=== PATIENT | male | born 1970 | race Caucasian/White ===

== ENCOUNTER 2018-06-23 12:50 | Emergency (ER) | payer SELFPAY ==
--- NOTE | 2018-06-23 13:20 | Emergency Department Record ---
History of Present Illness - General Chief Complaint: Chest Pain Stated Complaint: CHEST PRESSURE,BLURRY VISION Time Seen by Provider: 06/23/18 13:11 Source: Patient Mode of Arrival: Ambulatory Limitations: No limitations - History of Present Illness Initial Comments: 47 yo male presents with intermittent flushing, lightheadedness, chest tightness that started last evening. No shortness of breath or leg swelling. No cough or fever. He feels "foggy". He denies any recent similar symptoms prior to last night. He is not a smoker. No medications or chronic medical problems. He denies any family history of CAD. Three weeks ago he had a mild cough that resolved. No recent illness, immobilization. He felt cold last night as well. MD Complaint: Chest pain Onset/Timin -: Hour(s) Onset: During rest Pain Location: Left chest Pain Radiation: None Quality: Heaviness Consistency: Constant, Now resolved Improves With: Nothing Worsens With: Nothing Anginal Symptoms: Other Treatments Prior to Arrival: None - Related Data Allergies Allergy/AdvReac Type Severity Reaction Status Date / Time No Known Drug Allergies Allergy Verified 06/23/18 12:56 Travel Screening - Travel/Exposure Within Last 30 Days Have you traveled within the last 30 days?: No - Travel/Exposure Within Last Year Have you traveled outside the [place] in the last year?: No - Additonal Travel Details Have you been exposed to anyone with a communicable illness?: No - Travel Symptoms Symptom Screening: None Review of Systems Constitutional: Reports: Malaise. Denies: Chills, Fever Eyes: Reports: Vision change (peripheral "feels foggy"). Denies: Eye discharge ENT: Denies: Congestion, Throat pain Respiratory: Denies: Cough, Dyspnea, Hemoptysis, Stridor, Wheezes Cardiovascular: Reports: Chest pain. Denies: Edema, Palpitations, Syncope Endocrine: Reports: Fatigue Gastrointestinal: Denies: Abdominal pain, Diarrhea, Nausea, Vomiting Genitourinary: Denies: Dysuria, Frequency, Hematuria Musculoskeletal: Denies: Arthralgia, Back pain, Myalgia Skin: Denies: Bruising, Change in color, Rash Neurological: Reports: Other (feels foggy). Denies: Headache, Numbness, Vertigo , Weakness Psychiatric: Denies: Anxiety Hematological/Lymphatic: Denies: Blood Clots, Easy bleeding, Easy bruising, Swollen glands Past Medical History - SOCIAL HISTORY Smoking Status: Never smoker Alcohol Use: Occasional Drug Use: None - RESPIRATORY Hx Respiratory Disorders: No - CARDIOVASCULAR Hx Cardio Disorders: No - NEURO Hx Neuro Disorders: No - GI Hx GI Disorders: No - Hx Genitourinary Disorders: No - ENDOCRINE Hx Endocrine Disorders: No - MUSCULOSKELETAL Hx Musculoskeletal Disorders: No - PSYCH Hx Psych Problems: No - HEMATOLOGY/ONCOLOGY Hx Hematology/Oncology Disorders: No Family Medical History Any Significant Family History?: No Physical Exam - General General Appearance: Alert, Oriented x3, Cooperative, No acute distress Limitations: No limitations - Head Head exam: Atraumatic, Normal inspection - Eye Eye exam: Normal appearance, EOMI, Other (No double vision on examination, all quadrants intact with peripheral confrontation testing, no loss of range of motion of EOM). negative: PERRL, Conjunctival injection, Nystagmus, Scleral icterus Pupils: Normal accommodation. negative: Irregular, Unequal - ENT ENT exam: Normal exam, Mucous membranes moist Ear exam: Normal external inspection Nasal Exam: Normal inspection Mouth exam: Normal external inspection Teeth exam: Normal inspection Throat exam: Normal inspection - Neck Neck exam: Normal inspection, Full ROM. negative: Lymphadenopathy, Tenderness - Respiratory Respiratory exam: Normal lung sounds bilaterally. negative: Respiratory distress, Rhonchi, Stridor, Wheezes - Cardiovascular Cardiovascular Exam: Regular rate, Normal rhythm, Normal heart sounds. negative : Diastolic murmur, Irregular rhythm, Systolic murmur Peripheral Pulses: 2+: Radial (R), Radial (L), Dorsalis Pedis (R) (warm feet, brisk capillary refill), Dorsalis Pedis (L) (warm feet, brisk capillary refill) - GI/Abdominal GI/Abdominal exam: Soft. negative: Tenderness - Rectal Rectal exam: Deferred - exam: Deferred - Extremities Extremities exam: Normal inspection, Full ROM, Normal capillary refill. negative: Calf tenderness, Joint swelling, Pedal edema, Tenderness - Back Back exam: Reports: Normal inspection, Full ROM. Denies: CVA tenderness (R), CVA tenderness (L), Muscle spasm, Rash noted, Tenderness - Neurological Neurological exam: Alert, CN II-XII intact, Normal gait, Oriented X3. negative : Altered, Motor sensory deficit - Psychiatric Psychiatric exam: Normal affect, Normal mood. negative: Agitated, Anxious - Skin Skin exam: Dry, Intact, Normal color, Warm. negative: Cyanosis, Diaphoretic, Mottled, Pallor Course Vital Signs 06/23/18 12:56 Temperature 99 F Pulse Rate 89 Respiratory 18 Rate Blood Pressure 159/103 Pulse Ox 98 - Reevaluation(s) Reevaluation #1: EKG EKG #1: 13:00 Rate: 85 Rhythm: Sinus [place]: Normal Intervals: Normal ST segments: Normal Prior: 06/23/18 13:12 06/23/18 14:26 The labs were reviewed No acute abnormalities on the CBC, CMP,Troponin, TSH 06/23/18 14:48 Cardiology consultation placed with Dr Tyson. 06/23/18 15:36 Dr Tyson reviewed the case. A stress test will be completed today. 06/23/18 17:00 The stress test was reviewed with Dr Tyson It was a normal stress test to 12 mets [place] home to follow up with a referral to the [facility] 06/23/18 17:02 We discussed the results of all the tests, reasons to return and close follow up 06/23/18 17:27 BP improved to 135/97 at [place] Medical Decision Making - Lab Data Result diagrams: 06/23/18 13:10 06/23/18 13:10 Disposition Disposition: Discharge Clinical Impression: Chest pain Disposition: Home, Self-Care Condition: (1) Good Instructions: Chest Pain (ED) Additional Instructions: Call the number provided for a new family doctor Return to the ER for a recheck if worse, any new concerns or questions Review this ER visit and the tests performed with your family doctor Referrals: SRUTHI SALGADO [MEDICAL DOCTOR] - Forms: Patient Portal Access Time of Disposition: 17:01 Quality - Quality Measures Quality Measures: N/A - Blood Pressure Screening Does Patient Have Any of the Following: No Blood Pressure Classification: Hypertensive Reading Systolic Measurement: 135 Diastolic Measurement: 97 Screening for High Blood Pressure: < Pre-Hypertensive BP, F/U Documented > [ [id number]] Pre-Hypertensive Follow-up Interventions: Referral to alternative/primary care provider.
[2018-06-23 13:42] LABS: BASO % 0.6 % (0-6); EOS % 1.2 % (0-6); GRAN % 57.1 % (47-80); HEMATOCRIT 43.5 % (42.0-52.0); HEMOGLOBIN 14.7 gm/dl (14.0-18.0); MEAN CORPUSCULAR HEMOGLOBIN 29.4 pg (27-33); MEAN CORPUSCULAR HGB CONC 33.8 g/dl (32-36); MEAN PLATELET VOLUME 10.5 fl (7.4-10.4); MONO % 5.1 % (0-9); PLATELET COUNT 254 K/uL (130-400); RED CELL DISTRIBUTION WIDTH 13.9 % (11.5-14.5); WHITE BLOOD COUNT W/O DIFF 6.9 K/uL (4.2-12.2)
[2018-06-23 13:50] LABS: BLOOD UREA NITROGEN 13 mg/dL (6-20); CREATININE 1.1 mg/dL (0.7-1.2); EST GLOMERULAR FILTRATION RATE > 60 mL/min
[2018-06-23 13:51] LABS: TOTAL PROTEIN 7.7 g/dL (6.6-8.7)
[2018-06-23 13:53] LABS: GLUCOSE,RANDOM 60 mg/dL (74-109)
[2018-06-23 13:56] LABS: ALB/GLOB RATIO 1.7 (1.1-1.8); ALBUMIN 4.8 g/dL (4.0-5.0); ALKALINE PHOSPHATASE 73 U/L (55-149); ALT/SGPT 25 U/L (<41); AST/SGOT 17 U/L (10.0-50.0)
[2018-06-23] MEDS: ACETAMINOPHEN 500 MG TABLET PO ONE (16:54)
--- NOTE | 2018-06-23 21:34 | Stress Test Report ---
DATE OF PROCEDURE: 06/23/2018 INTERPRETING PHYSICIAN: JEROME PEREZ M.D. REFERRING PHYSICIAN: DR. NEERU PÉREZ, EMERGENCY DEPARTMENT. INDICATION: CHEST PAIN. The patient's resting vital signs show a heart rate of 81 beats per minute with a blood pressure of 127/93 mmHg. P-R interval is 120 milliseconds. QRS duration is 109 milliseconds. QTc interval is 423 milliseconds. The patient was exercised on a motorized treadmill using a standard Gm protocol for a total of 11 minutes, achieving 12 METS of workload and achieving a heart rate of 157 beats per minute, which was 90% of the maximum predicted heart rate for his age. The patient's peak blood pressure was 183/93 mmHg. The patient had 2 out of 10 chest pain at rest, which increased to 3 out of 10 during peak stress and went down to 2 out of 10 during recovery. The patient's ECG didn't show any ST or T-wave changes suggestive of ischemia. Occasional PVCs wree seen. IMPRESSION: 1. NORMAL ECG RESPONSE TO EXERCISE STRESS WHILE ACHIEVING 12 METS OF WORKLOAD. 2. GOOD EXERCISE CAPACITY FOR AGE. JOB NUMBER: [id number] MTDD
--- NOTE | 2018-06-24 10:37 | RADIOLOGY REPORT ---
EXAM: CHEST, TWO VIEWS HISTORY: DIFFICULTY BREATHING. TECHNIQUE: Frontal and lateral views of the chest were performed. FINDINGS: The heart size is normal. The lung godfrey are clear. No infiltrate or pleural effusion. The osseous structures are normal. IMPRESSION: NEGATIVE CHEST EXAMINATION. JOB NUMBER: [id number] [facility]
== END 2018-06-23 17:19 | disposition home or self-care (01) ==
LOC: ER 12:50
DX: R07.89 Other chest pain (principal); H53.8 Other visual disturbances; R06.00 Dyspnea, unspecified; F17.210 Nicotine dependence, cigarettes, uncomplicated
CPT/HCPCS: 71046; 80053; 82375; 84443; 84484; 85025; 85379; 93005; 93010; 93017; 99284